=== PATIENT | male | born 1985 | race Caucasian/White ===

== ENCOUNTER 2021-08-07 10:37 | Emergency (ER) | payer BC ==
[~2021-08-07] VITALS: Ht 175.3 cm; Wt 72.7 kg
--- NOTE | 2021-08-07 10:44 | NUR ---
KATHRYN JENKINS AWARE OF PATIENT.
[2021-08-07 11:06] LABS: BASOPHILS % (AUTO) 0.1 % (0-1); EOSINOPHILS % (AUTO) 0.2 % (0-6); HEMOGLOBIN 15.3 g/dl (14.0-17.9); LYMPHOCYTES # (AUTO) 0.7 X10'3 (1.1-4.8); MEAN CORPUSCULAR HEMOGLOBIN 29.8 PG (27.0-31.0); MEAN CORPUSCULAR HGB CONC 33.3 g/dL (33.0-36.5); MEAN CORPUSCULAR VOLUME 89.7 FL (78-98); MEAN PLATELET VOLUME 7.4 FL (7.4-10.4); MONOCYTES # (AUTO) 0.8 X10'3 (0-0.9); MONOCYTES % (AUTO) 5.9 % (2-12); NEUTROPHILS # (AUTO) 11.6 X10'3 (1.8-7.7); NEUTROPHILS % (AUTO) 88.8 % (42-75); PLATELET COUNT 193 X10'3 (140-440); RED BLOOD COUNT 5.13 X10'6 (4.70-6.10); RED CELL DISTRIBUTION WIDTH 13.1 % (11.5-14.5); WHITE BLOOD COUNT 13.1 X10'3 (4.5-11.0)
[2021-08-07 11:14] VITALS: BP 113/68
[2021-08-07 11:22] LABS: ALANINE AMINOTRANSFERASE 42 U/L (12-78); ALBUMIN 4.2 G/DL (3.4-5.0); ALBUMIN/GLOBULIN RATIO 1.4 (1.1-1.5); ALKALINE PHOSPHATASE 61 IU/L (46-116); ANION GAP 8 (8-16); ASPARTATE AMINO TRANSFERASE 22 U/L (10-37); BILIRUBIN,TOTAL 0.7 MG/DL (0.1-1.0); BLOOD UREA NITROGEN 26 MG/DL (7-18); BUN/CREATININE RATIO 25.2 (5.4-32.0); CALCIUM 8.8 MG/DL (8.5-10.1); CHLORIDE 103 MMOL/L (99-107); CREATININE 1.03 MG/DL (0.60-1.10); GLUCOSE 140 MG/DL (70-104); LIPASE 68 U/L (73-393); POTASSIUM 3.6 MMOL/L (3.5-5.1); SODIUM 140 MMOL/L (135-145); TOTAL CARBON DIOXIDE 28.9 MMOL/L (24-32); TOTAL PROTEIN 7.3 G/DL (6.4-8.2); eGFR 82 ML/MIN
[2021-08-07] MEDS ORDERED: ringers solution, lacted 1,000 ML IV ONE (11:50)
[2021-08-07] MEDS ORDERED: LORazepam 2 mg/ml vial IV ONE (11:50)
--- NOTE | 2021-08-07 12:05 | NUR ---
PT REFUSING MEDICATION MD SHERLY DERREK UPDATED AND TALKING WITH PT AT BEDSIDE
[2021-08-07] MEDS ORDERED: magnesium 2GM in 50ml NS 50 ML IV ONE (12:15)
[2021-08-07 12:16] LABS: ETHANOL < 0.010 GM/DL (0.0-0.010)
[2021-08-07] MEDS ORDERED: metoclopramide 5 mg/ml inj IV ONE (13:00)
[2021-08-07] MEDS ORDERED: METO-292 PO (13:35)
== END 2021-08-07 14:17 | disposition home or self-care (01) ==
LOC: ER 10:38
DX: F20.2 Catatonic schizophrenia (principal); G43.D0 Abdominal migraine, not intractable; R11.2 Nausea with vomiting, unspecified; Z79.899 Other long term (current) drug therapy
CPT/HCPCS: 36415; 80053; 80320; 83690; 85025; 93005; 96365; 96375; 99284; J2765; J3475; J7120